=== PATIENT | male | born 1950 | race American Indian/Alaskan Native ===

== ENCOUNTER 2018-08-02 14:50 | Emergency (ER) | payer MEDICARE ==
--- NOTE | 2018-08-02 15:36 | Emergency Department Report ---
HPI - General Chief Complaint: Medical Clearance Time Seen by Provider: 08/02/18 15:24 - HPI HPI: Room 8 The patient is 68-year-old male presented with a chief complaint of right lower extremity swelling. Patient's currently at [facility] for detox. Reportedly the patient noticed swelling of the right leg since yesterday. Patient denies history of trauma. The patient was sent to the ED to rule out DVT Location: [See above] Duration: [See above] Quality: [See above] Severity: [See above] Modifying factors: [see above] Context: [see above] Mode of transportation: [not driving] ED Past Medical Hx - Past Medical History Hx Hypertension: Yes Hx Congestive Heart Failure: Yes Additional medical history: CHF, Hyperlipidemia - Surgical History Additional Surgical History: right knee replacement - Family History Family history: no significant - Social History Smoking Status: Never Smoker - Medications Home Medications: Home Medications Medication Instructions Recorded Confirmed Last Taken Type Furosemide [Lasix] 20 mg PO QDAY #7 tablet 08/02/18 Unknown Rx ED Review of Systems ROS: Stated complaint: RIGHT LEG PAIN Other details as noted in HPI Physical Exam - Physical Exam Vital Signs: Vital Signs 08/02/18 08/02/18 15:12 15:13 Temperature 97.9 F Pulse Rate 73 Respiratory 18 18 Rate Blood Pressure 150/90 [Left] O2 Sat by Pulse 96 96 Oximetry Physical Exam: GENERAL: The patient is well-developed well-nourished male lying on stretcher not appearing to be in acute distress. [] HEENT: Normocephalic. Atraumatic. Extraocular motions are intact. Patient has moist mucous membranes. NECK: Supple. Trachea midline CHEST/LUNGS: There is no respiratory distress noted. HEART/CARDIOVASCULAR: Regular. There is no tachycardia. There is no gallop rub or murmur. SKIN: There is no rash. There is 1+ bilateral lower pitting edema. There is no diaphoresis. NEURO: The patient is awake, alert, and oriented. The patient is cooperative. The patient has normal speech MUSCULOSKELETAL: There is no calf tenderness bilaterally. There is no evidence of acute injury. ED Course Vital Signs 08/02/18 08/02/18 15:12 15:13 Temperature 97.9 F Pulse Rate 73 Respiratory 18 18 Rate Blood Pressure 150/90 [Left] O2 Sat by Pulse 96 96 Oximetry ED Medical Decision Making - Lab Data Result diagrams: 08/02/18 15:21 08/02/18 15:21 Laboratory Tests 08/02/18 08/02/18 08/02/18 15:21 15:21 15:21 WBC 5.0 RBC 4.77 Hgb 13.0 Hct 40.4 MCV 85 MCH 27 L MCHC 32 RDW 21.0 H Plt Count 132 L Lymph % (Auto) 15.9 Pine % (Auto) 8.6 H Eos % (Auto) 1.9 Baso % (Auto) 0.4 Lymph # 0.8 L Pine # 0.4 Eos # 0.1 Baso # 0.0 Seg Neutrophils % 73.2 H Seg Neutrophils # 3.6 PT 12.7 INR 0.98 APTT 28.0 Sodium 139 Potassium 4.6 Chloride 100.6 Carbon Dioxide 27 Anion Gap 16 BUN 12 Creatinine 0.7 L Estimated GFR > 60 BUN/Creatinine Ratio 17 Glucose 97 Calcium 9.4 Troponin T < 0.010 NT-Pro-B Natriuret Pep 08/02/18 15:21 WBC RBC Hgb Hct MCV MCH MCHC RDW Plt Count Lymph % (Auto) Pine % (Auto) Eos % (Auto) Baso % (Auto) Lymph # Pine # Eos # Baso # Seg Neutrophils % Seg Neutrophils # PT INR APTT Sodium Potassium Chloride Carbon Dioxide Anion Gap BUN Creatinine Estimated GFR BUN/Creatinine Ratio Glucose Calcium Troponin T NT-Pro-B Natriuret Pep 241.1 Laboratory Tests 08/02/18 08/02/18 08/02/18 15:21 15:21 15:21 WBC 5.0 RBC 4.77 Hgb 13.0 Hct 40.4 MCV 85 MCH 27 L MCHC 32 RDW 21.0 H Plt Count 132 L Lymph % (Auto) 15.9 Pine % (Auto) 8.6 H Eos % (Auto) 1.9 Baso % (Auto) 0.4 Lymph # 0.8 L Pine # 0.4 Eos # 0.1 Baso # 0.0 Seg Neutrophils % 73.2 H Seg Neutrophils # 3.6 PT 12.7 INR 0.98 APTT 28.0 Sodium 139 Potassium 4.6 Chloride 100.6 Carbon Dioxide 27 Anion Gap 16 BUN 12 Creatinine 0.7 L Estimated GFR > 60 BUN/Creatinine Ratio 17 Glucose 97 Calcium 9.4 Total Bilirubin Direct Bilirubin Indirect Bilirubin AST ALT Alkaline Phosphatase Troponin T < 0.010 NT-Pro-B Natriuret Pep Total Protein Albumin Albumin/Globulin Ratio 08/02/18 08/02/18 15:21 15:21 WBC RBC Hgb Hct MCV MCH MCHC RDW Plt Count Lymph % (Auto) Pine % (Auto) Eos % (Auto) Baso % (Auto) Lymph # Pine # Eos # Baso # Seg Neutrophils % Seg Neutrophils # PT INR APTT Sodium Potassium Chloride Carbon Dioxide Anion Gap BUN Creatinine Estimated GFR BUN/Creatinine Ratio Glucose Calcium Total Bilirubin 0.30 Direct Bilirubin < 0.2 Indirect Bilirubin 0.1 AST 21 ALT 17 Alkaline Phosphatase 111 Troponin T NT-Pro-B Natriuret Pep 241.1 Total Protein 7.7 Albumin 4.0 Albumin/Globulin Ratio 1.1 - Radiology Data Radiology results: report reviewed (right lower extremity Doppler), image reviewed (right lower extremity Doppler) [facility] [address] [place] [address] Vascular Lab Report Signed Patient: ALFRED NUNEZ MR#: [id number] [birth year] : 1950 Acct:[id number] Age/Sex: 68 / M ADM Date: 08/02/18 Loc: ED Attending Dr: Ordering Physician: SHERYL EATON MD Date of Service: 08/02/18 Procedure(s): VL venous duplex LE RT Accession Number(s): [id number] cc: SHERYL EATON MD PROCEDURE: VL VENOUS DUPLEX LE RT TECHNIQUE: Duplex Doppler sonography of the right leg. Barr scale imaging with and without compression, spectral waveform analysis with and without augmentation, and color flow Doppler were employed. HISTORY: swelling COMPARISONS: None FINDINGS: Real-time ultrasound of the right leg was performed using grayscale and color Doppler images. These images demonstrate no evidence of deep venous thrombus in the right common femoral vein, superficial femoral vein, popliteal vein or posterior tibial vein. IMPRESSION: No DVT in right leg This document is electronically signed by Titi Morales MD., August 02 2018 04:29:16 PM ET Transcribed By: ELANA Dictated By: TITI MORALES MD Electronically Authenticated By: TTII MORALES MD Signed Date/Time: 08/02/18 1631 DD/ 1615 TD/TT: 08/02/18 1616 - Differential Diagnosis DVT, lymphedema Critical care attestation.: If time is entered above; I have spent that time in minutes in the direct care of this critically ill patient, excluding procedure time. ED Disposition Clinical Impression: Peripheral edema Disposition: DC/TX-65 PSY HOSP/PSY UNIT Is pt being admited?: No Does the pt Need Aspirin: No Condition: Stable Instructions: Leg Edema (ED) Additional Instructions: Return to the emergency department immediately should you develop worsening symptoms, fever, inability to tolerate food or liquid or any other concerns. Prescriptions: Furosemide [Lasix] 20 mg PO QDAY #7 tablet [facility]: [facility] MUSTAPHA [Primary Care Provider] - 3-5 Days DORCAS ORTIZ MD [Staff Physician] - 3-5 Days Time of Disposition: 17:56
[2018-08-02 15:44] LABS: Basophils % (Auto) 0.4 % (0.0-1.8); Eosinophils # (Auto) 0.1 K/mm3 (0.0-0.4); Eosinophils % (Auto) 1.9 % (0.0-4.3); Hematocrit 40.4 % (35.5-45.6); Lymphocytes # (Auto) 0.8 K/mm3 (1.2-5.4); Lymphocytes % (Auto) 15.9 % (13.4-35.0); Mean Corpuscular HGB Conc 32 % (32-34); Mean Corpuscular Volume 85 fl (84-94); Monocytes # (Auto) 0.4 K/mm3 (0.0-0.8); Monocytes % (Auto) 8.6 % (0.0-7.3); Platelet Count 132 K/mm3 (140-440); Red Blood Count 4.77 M/mm3 (3.65-5.03)
[2018-08-02 15:52] LABS: BUN/Creatinine Ratio 17; Blood Urea Nitrogen 12 mg/dL (9-20); Calcium 9.4 mg/dL (8.4-10.2); Hemolysis Index 5
[2018-08-02 15:53] LABS: INR 0.98 (0.87-1.13)
--- NOTE | 2018-08-02 16:31 | Vascular Lab Report ---
PROCEDURE: VL VENOUS DUPLEX LE RT TECHNIQUE: Duplex Doppler sonography of the right leg. Barr scale imaging with and without compressi on, spectral waveform analysis with and without augmentation, and color flow Doppler were employed. HISTORY: swelling COMPARISONS: None FINDINGS: Real-time ultrasound of the right leg was performed using grayscale and color Doppler image s. These images demonstrate no evidence of deep venous thrombus in the right common femoral vein, superf icial femoral vein, popliteal vein or posterior tibial vein. IMPRESSION: No DVT in right leg This document is electronically signed by Titi Morales MD., August 02 2018 04:29:16 PM ET
[2018-08-02] MEDS ORDERED: LASIX PO ONE (17:30)
[2018-08-02 17:47] LABS: Alanine Aminotransferase 17 units/L (7-56)
[2018-08-02 17:48] LABS: Bilirubin,Direct < 0.2 mg/dL (0-0.2)
[2018-08-02 20:57] VITALS: BP 139/87
== END 2018-08-02 20:10 ==
LOC: ED 14:50
DX: R60.9 Edema, unspecified (principal); E78.00 Pure hypercholesterolemia, unspecified; I11.0 Hypertensive heart disease with heart failure; I50.9 Heart failure, unspecified; Z96.651 Presence of right artificial knee joint; Z79.899 Other long term (current) drug therapy; Z88.0 Allergy status to penicillin
CPT/HCPCS: 36415; 80048; 80076; 83880; 84484; 85025; 85610; 85730; 99284